=== PATIENT | female | born 2000 | race African-American/Black ===

== ENCOUNTER → 2020-07-20 | Emergency (ER) | payer OTHER ==
[~2020-07-20] VITALS: Ht 167.6 cm; Wt 109.1 kg
[~2020-07-20] MED LIST: ACETAMINOPHEN 500 MG TABLET PO ONE
[2020-07-21 01:30] VITALS: BP 132/84
== END | disposition home or self-care (01) ==
LOC: EMS 23:39
DX: S43.004A Unspecified dislocation of right shoulder joint, initial encounter (principal); X58.XXXA Exposure to other specified factors, initial encounter; Y93.89 Activity, other specified; Y92.89 Other specified places as the place of occurrence of the external cause; Y99.8 Other external cause status
CPT/HCPCS: 23650; 99284; 73030-TC; Z7502; Z7610